=== PATIENT | female | born 1935 | race Caucasian/White ===

== ENCOUNTER 2017-07-11 16:28 | Emergency (ER) | payer MEDICARE, OTHER ==
[2017-07-11 16:35] VITALS: BP 154/95
--- NOTE | 2017-07-11 16:59 | RAD ---
INDICATION: Left wrist injury COMPARISON: October 07, 2004 TECHNIQUE: AP, lateral, and oblique views were obtained. FINDINGS: There is osteopenia with a remote distal radial fracture. There are no acute osseous findings. 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 IMPRESSION: OLD INTRA-ARTICULAR DISTAL RADIAL FRACTURE. NO ACUTE ABNORMALITIES ARE SEEN
--- NOTE | 2017-07-11 17:12 | UC ---
Upper Extremity HPI - HPI Summary HPI Summary: Patient presents to the ED with left wrist pain after a FOOSH injury. She notes to pain over the dorsum of the wrist, worse with flexion and extension, better with rest and ice. She has fx the area twice and is concerned over another injury. She denies other pain. Denies hitting her head, FERGUSON or LOC. Mechanism of injury was falling down 2 steps from a standing position. The fall was mechanical and she did not have memory loss, confusion or dizziness prior to the fall. Denies other symptoms. She is otherwise healthy. Denies numbness, tingling, color or temperature changes. - History of Current Complaint Chief Complaint: UCUpperExtremity Stated Complaint: WRIST INJURY Time Seen by Provider: 07/11/17 16:38 Hx Obtained From: Patient ?: No Onset/Duration: Sudden Onset Severity Initially: Moderate Severity Currently: Moderate Pain Intensity: 4 Pain Scale Used: 0-10 Numeric Location Of Pain: Is Discrete @ - left dorsum or the wrist Aggravating Factor(s): Lifting, Flexion, Internal/External Rotation Alleviating Factor(s): Nothing Associated Signs And Symptoms: Positive: Negative Related History: Dominant Hand Right - Risk Factors Non-Orthopedic Risk Factor: Negative DVT Risk Factors: Negative Compartment Syndrome Risk Factors: Pain - Allergies/Home Medications Allergies/Adverse Reactions: Allergies Allergy/AdvReac Type Severity Reaction Status Date / Time Sulfa Drugs Allergy RASH & Verified 07/11/17 16:35 SICK TO STOMACH ENVIRONMENTAL/SEASONAL Allergy Sneezing Uncoded 07/11/17 16:35 HAYFEVER PMH/Surg Hx/FS Hx/Imm Hx Previously Healthy: No - Surgical History Surgical History: Yes Surgery Procedure, Year, and Place: 1987 BILATERAL TUBAL LIGATION, [facility] – [place]. 2011 RIGHT WRIST FRACTURE - EXTERNAL FIXATION, [facility] [place]. 2011 GLAUCOMA SURGERY - RIGHT EYE, [place]. 09/2013 LEFT HIP PINNING, [place] - Family History Known Family History: Positive: Unknown - Social History Occupation: Retired Lives: With Family Alcohol Use: Occasionally Alcohol Amount: 2-3 OZ PER DAY OF WINE Substance Use Type: None Smoking Status (MU): Never Smoked Tobacco Have You Smoked in the Last Year: No Review of Systems Constitutional: Negative Respiratory: Negative Cardiovascular: Negative Motor: Negative, Decreased ROM Musculoskeletal: Arthralgia Neurological: Negative Psychological: Negative Is Patient Immunocompromised?: No All Other Systems Reviewed And Are Negative: Yes Physical Exam Triage Information Reviewed: Yes Appearance: Well-Appearing, No Pain Distress, Well-Nourished Vital Signs: Initial Vital Signs Temp 98.8 F 07/11/17 16:32 Pulse 78 07/11/17 16:32 Resp 12 07/11/17 16:32 BP 154/95 07/11/17 16:32 Pulse Ox 100 07/11/17 16:32 Vital Signs Reviewed: Yes Eye Exam: Normal Eyes: Positive: Conjunctiva Clear Neck exam: Normal Neck: Positive: Supple, No Lymphadenopathy Respiratory Exam: Normal Respiratory: Positive: Chest non-tender Cardiovascular Exam: Normal Cardiovascular: Positive: RRR Musculoskeletal Exam: Normal Musculoskeletal: Positive: Strength Intact Psychological: Positive: Normal Response To Family, Age Appropriate Behavior Skin Exam: Normal Upper Extremity Course/Dx - Course Course Of Treatment: Patient sent to xray. Negative for fx. Dank wrapped. Encouraged ice and elevation and ibuprofen. If symptoms worsen, she should return to the ED. - Differential Dx/Diagnosis Differential Diagnosis/HQI/PQRI: Contusion, Fracture (Open), Fracture (Closed) Provider Diagnoses: Wrist Sprain Discharge - Discharge Plan Condition: Stable Disposition: HOME Patient Education Materials: Wrist Sprain (ED) Referrals: Terrence Smallwood MD [Primary Care Provider] - Additional Instructions: Ibuprofen 400mg three times daily for pain Keep dank wrapped for comfort Ice the area
== END 2017-07-11 17:16 | disposition home or self-care (01) ==
LOC: UCEAST 16:28
DX: S63.502A Unspecified sprain of left wrist, initial encounter (principal); W10.9XXA Fall (on) (from) unspecified stairs and steps, initial encounter; Y92.9 Unspecified place or not applicable
CPT/HCPCS: 99211; G0463

== ENCOUNTER 2017-07-12 10:07 | Emergency (ER) | payer MEDICARE, OTHER ==
[2017-07-12 10:30] VITALS: BP 131/81
--- NOTE | 2017-07-12 10:56 | UC ---
Back Pain HPI - HPI Summary HPI Summary: 81 y/o female s/p mechanical fall yesterday, was seen here for wrist pain, negative x-ray. patient states had back pain however was not evaluated. Denies radiculopathy, neuropathy, + pain over R gluteal area, better with sleeping on right side overnight, worse sleeping on left. improved with alleve this AM. had h/o osteopenia and L broken hip in past, concerned about fracture. no LOC, head injury no other pains. - History of Current Complaint Chief Complaint: UCBackPain Stated Complaint: BACK INJURY Time Seen by Provider: 07/12/17 10:33 Hx Obtained From: Patient ?: No Onset/Duration: Sudden Onset, Lasting Days Timing: Constant Severity Initially: Moderate Severity Currently: Mild - Allergies/Home Medications Allergies/Adverse Reactions: Allergies Allergy/AdvReac Type Severity Reaction Status Date / Time Sulfa Drugs Allergy RASH & Verified 07/12/17 10:30 SICK TO STOMACH ENVIRONMENTAL/SEASONAL Allergy Sneezing Uncoded 07/12/17 10:30 HAYFEVER PMH/Surg Hx/FS Hx/Imm Hx Previously Healthy: No - h/o osteopenia - Surgical History Surgical History: Yes Surgery Procedure, Year, and Place: 1987 BILATERAL [place], [facility] [place]. 2011 RIGHT WRIST FRACTURE - EXTERNAL FIXATION, [facility] [place]. 2011 GLAUCOMA SURGERY - RIGHT EYE, [place]. 09/2013 LEFT HIP PINNING, [place] - Family History Known Family History: Positive: Unknown - Social History Alcohol Use: Occasionally Alcohol Amount: 2-3 OZ PER DAY OF WINE Substance Use Type: None Smoking Status (MU): Never Smoked Tobacco Have You Smoked in the Last Year: No Review of Systems Motor: Negative Neurovascular: Negative Musculoskeletal: Arthralgia, Myalgia - R gluteal area All Other Systems Reviewed And Are Negative: Yes Physical Exam Triage Information Reviewed: Yes Appearance: Well-Appearing, No Pain Distress, Well-Nourished Vital Signs: Initial Vital Signs Temp 98.2 F 07/12/17 10:26 Pulse 85 07/12/17 10:26 Resp 18 07/12/17 10:26 BP 131/81 07/12/17 10:26 Pulse Ox 100 07/12/17 10:26 Musculoskeletal: Positive: Strength Intact, ROM Intact, Edema @ - L hand, Other : - mild antalgic gait favoring R side, no drop foot. PT 2+ b/l, neg homans sign, sensation to light touch grossly intact b/l Les, neg log roll of R hip, full ROm, flexion to 90 AROM, no tenderness R groin, over trochanter. + tenderness over PSIS palpation extending into buttock, no loss of bowel/ bladder function. L voalr hand + ecchymosis, swelling, dresssing removed and replaced to cover MCPs full strength all L digits Psychological: Positive: Normal Response To Family Back Pain Course/Dx - Course Course Of Treatment: radiograph- reviewed L wrist radiograph from yesterday, Neg. Follow up with orthopedist within 2-3 days if no improvement of L hand, R hip - Differential Dx/Diagnosis Differential Diagnosis/HQI/PQRI: Fracture, Herniated Disc, Osteomyelitis, Strain , Sprain Provider Diagnoses: contusion R hip Discharge - Discharge Plan Condition: Good Disposition: HOME Prescriptions: Lidocaine PATCH 5%* [Lidoderm 5% Patch*] 1 patch TRANSDERM DAILY #10 patch Patient Education Materials: Contusion in Adults (ED) Referrals: Terrence Smallwood MD [Primary Care Provider] - Additional Instructions: Back Pain HPI - HPI Summary HPI Summary: 81 y/o female s/p mechanical fall yesterday, was seen here for wrist pain, negative x-ray. patient states had back pain however was not evaluated. Denies radiculopathy, neuropathy, + pain over R gluteal area, better with sleeping on right side overnight, worse sleeping on left. improved with alleve this AM. had h/o osteopenia and L broken hip in past, concerned about fracture. no LOC, head injury no other pains. - History of Current Complaint Chief Complaint: UCBackPain Stated Complaint: BACK INJURY Time Seen by Provider: 07/12/17 10:33 Hx Obtained From: Patient ?: No Onset/Duration: Sudden Onset, Lasting Days Timing: Constant Severity Initially: Moderate Severity Currently: Mild - Allergies/Home Medications Allergies/Adverse Reactions: Allergies Allergy/AdvReac Type Severity Reaction Status Date / Time Sulfa Drugs Allergy RASH & Verified 07/12/17 10:30 SICK TO STOMACH ENVIRONMENTAL/SEASONAL Allergy Sneezing Uncoded 07/12/17 10:30 HAYFEVER PMH/Surg Hx/FS Hx/Imm Hx Previously Healthy: No - h/o osteopenia - Surgical History Surgical History: Yes Surgery Procedure, Year, and Place: 1987 BILATERAL [place], [facility] [place]. 2011 RIGHT WRIST FRACTURE - EXTERNAL FIXATION, [facility] [place]. 2011 GLAUCOMA SURGERY - RIGHT EYE, [place]. 09/2013 LEFT HIP PINNING, [place] - Family History Known Family History: Positive: Unknown - Social History Alcohol Use: Occasionally Alcohol Amount: 2-3 OZ PER DAY OF WINE Substance Use Type: None Smoking Status (MU): Never Smoked Tobacco Have You Smoked in the Last Year: No Review of Systems Motor: Negative Neurovascular: Negative Musculoskeletal: Arthralgia, Myalgia - R gluteal area All Other Systems Reviewed And Are Negative: Yes Physical Exam Triage Information Reviewed: Yes Appearance: Well-Appearing, No Pain Distress, Well-Nourished Vital Signs: Initial Vital Signs Temp 98.2 F 07/12/17 10:26 Pulse 85 07/12/17 10:26 Resp 18 07/12/17 10:26 BP 131/81 07/12/17 10:26 Pulse Ox 100 07/12/17 10:26 Musculoskeletal: Positive: Strength Intact, ROM Intact, Edema @ - L hand, Other : - mild antalgic gait favoring R side, no drop foot. PT 2+ b/l, neg homans sign, sensation to light touch grossly intact b/l Les, neg log roll of R hip, full ROm, flexion to 90 AROM, no tenderness R groin, over trochanter. + tenderness over PSIS palpation extending into buttock, no loss of bowel/ bladder function. L voalr hand + ecchymosis, swelling, dresssing removed and replaced to cover MCPs full strength all L digits Psychological: Positive: Normal Response To Family Back Pain Course/Dx - Course Course Of Treatment: radiograph- reviewed L wrist radiograph from yesterday, Neg. Follow up with orthopedist within 2-3 days if no improvement of L hand, R hip - Differential Dx/Diagnosis Differential Diagnosis/HQI/PQRI: Fracture, Herniated Disc, Osteomyelitis, Strain , Sprain Provider Diagnoses: contusion R hip Discharge - Discharge Plan Condition: Good Disposition: HOME Patient Education Materials: Contusion in Adults (ED) Back Pain HPI - HPI Summary HPI Summary: 81 y/o female s/p mechanical fall yesterday, was seen here for wrist pain, negative x-ray. patient states had back pain however was not evaluated. Denies radiculopathy, neuropathy, + pain over R gluteal area, better with sleeping on right side overnight, worse sleeping on left. improved with alleve this AM. had h/o osteopenia and L broken hip in past, concerned about fracture. no LOC, head injury no other pains. - History of Current Complaint Chief Complaint: UCBackPain Stated Complaint: BACK INJURY Time Seen by Provider: 07/12/17 10:33 Hx Obtained From: Patient ?: No Onset/Duration: Sudden Onset, Lasting Days Timing: Constant Severity Initially: Moderate Severity Currently: Mild - Allergies/Home Medications Allergies/Adverse Reactions: Allergies Allergy/AdvReac Type Severity Reaction Status Date / Time Sulfa Drugs Allergy RASH & Verified 07/12/17 10:30 SICK TO STOMACH ENVIRONMENTAL/SEASONAL Allergy Sneezing Uncoded 07/12/17 10:30 HAYFEVER PMH/Surg Hx/FS Hx/Imm Hx Previously Healthy: No - h/o osteopenia - Surgical History Surgical History: Yes Surgery Procedure, Year, and Place: 1987 BILATERAL TUBAL LIGATION, [facility] [place]. 2011 RIGHT WRIST FRACTURE - EXTERNAL FIXATION, [facility] [place]. 2011 GLAUCOMA SURGERY - RIGHT EYE, [place]. 09/2013 LEFT HIP PINNING, [place] - Family History Known Family History: Positive: Unknown - Social History Alcohol Use: Occasionally Alcohol Amount: 2-3 OZ PER DAY OF WINE Substance Use Type: None Smoking Status (MU): Never Smoked Tobacco Have You Smoked in the Last Year: No Review of Systems Motor: Negative Neurovascular: Negative Musculoskeletal: Arthralgia, Myalgia - R gluteal area All Other Systems Reviewed And Are Negative: Yes Physical Exam Triage Information Reviewed: Yes Appearance: Well-Appearing, No Pain Distress, Well-Nourished Vital Signs: Initial Vital Signs Temp 98.2 F 07/12/17 10:26 Pulse 85 07/12/17 10:26 Resp 18 07/12/17 10:26 BP 131/81 07/12/17 10:26 Pulse Ox 100 07/12/17 10:26 Musculoskeletal: Positive: Strength Intact, ROM Intact, Edema @ - L hand, Other : - mild antalgic gait favoring R side, no drop foot. PT 2+ b/l, neg homans sign, sensation to light touch grossly intact b/l Les, neg log roll of R hip, full ROm, flexion to 90 AROM, no tenderness R groin, over trochanter. + tenderness over PSIS palpation extending into buttock, no loss of bowel/ bladder function. L voalr hand + ecchymosis, swelling, dresssing removed and replaced to cover MCPs full strength all L digits Psychological: Positive: Normal Response To Family Back Pain Course/Dx - Course Course Of Treatment: radiograph- reviewed L wrist radiograph from yesterday, Neg. Follow up with orthopedist within 2-3 days if no improvement of L hand, R hip - Differential Dx/Diagnosis Differential Diagnosis/HQI/PQRI: Fracture, Herniated Disc, Osteomyelitis, Strain , Sprain Provider Diagnoses: contusion R hip Discharge - Discharge Plan Condition: Good Disposition: HOME Patient Education Materials: Contusion in Adults (ED) Back Pain HPI - HPI Summary HPI Summary: 81 y/o female s/p mechanical fall yesterday, was seen here for wrist pain, negative x-ray. patient states had back pain however was not evaluated. Denies radiculopathy, neuropathy, + pain over R gluteal area, better with sleeping on right side overnight, worse sleeping on left. improved with alleve this AM. had h/o osteopenia and L broken hip in past, concerned about fracture. no LOC, head injury no other pains. - History of Current Complaint Chief Complaint: UCBackPain Stated Complaint: BACK INJURY Time Seen by Provider: 07/12/17 10:33 Hx Obtained From: Patient ?: No Onset/Duration: Sudden Onset, Lasting Days Timing: Constant Severity Initially: Moderate Severity Currently: Mild - Allergies/Home Medications Allergies/Adverse Reactions: Allergies Allergy/AdvReac Type Severity Reaction Status Date / Time Sulfa Drugs Allergy RASH & Verified 07/12/17 10:30 SICK TO STOMACH ENVIRONMENTAL/SEASONAL Allergy Sneezing Uncoded 07/12/17 10:30 HAYFEVER PMH/Surg Hx/FS Hx/Imm Hx Previously Healthy: No - h/o osteopenia - Surgical History Surgical History: Yes Surgery Procedure, Year, and Place: 1987 BILATERAL TUBAL LIGATION, [facility] [place]. 2011 RIGHT WRIST FRACTURE - EXTERNAL FIXATION, [facility] [place]. 2011 GLAUCOMA SURGERY - RIGHT EYE, [place]. 09/2013 LEFT HIP PINNING, [place] - Family History Known Family History: Positive: Unknown - Social History Alcohol Use: Occasionally Alcohol Amount: 2-3 OZ PER DAY OF WINE Substance Use Type: None Smoking Status (MU): Never Smoked Tobacco Have You Smoked in the Last Year: No Review of Systems Motor: Negative Neurovascular: Negative Musculoskeletal: Arthralgia, Myalgia - R gluteal area All Other Systems Reviewed And Are Negative: Yes Physical Exam Triage Information Reviewed: Yes Appearance: Well-Appearing, No Pain Distress, Well-Nourished Vital Signs: Initial Vital Signs Temp 98.2 F 07/12/17 10:26 Pulse 85 07/12/17 10:26 Resp 18 07/12/17 10:26 BP 131/81 07/12/17 10:26 Pulse Ox 100 07/12/17 10:26 Musculoskeletal: Positive: Strength Intact, ROM Intact, Edema @ - L hand, Other : - mild antalgic gait favoring R side, no drop foot. PT 2+ b/l, neg homans sign, sensation to light touch grossly intact b/l Les, neg log roll of R hip, full ROm, flexion to 90 AROM, no tenderness R groin, over trochanter. + tenderness over PSIS palpation extending into buttock, no loss of bowel/ bladder function. L voalr hand + ecchymosis, swelling, dresssing removed and replaced to cover MCPs full strength all L digits Psychological: Positive: Normal Response To Family Back Pain Course/Dx - Course Course Of Treatment: radiograph- reviewed L wrist radiograph from yesterday, Neg. Follow up with orthopedist within 2-3 days if no improvement of L hand, R hip - Differential Dx/Diagnosis Differential Diagnosis/HQI/PQRI: Fracture, Herniated Disc, Osteomyelitis, Strain , Sprain Provider Diagnoses: contusion R hip Discharge - Discharge Plan Condition: Good Disposition: HOME Patient Education Materials: Contusion in Adults (ED) - Rest, ice or heat over area - Follow up with primary physician within 2-3 days if no improvement - Alleve/ motrin as needed for pain -
--- NOTE | 2017-07-12 11:38 | RAD ---
Indication: RIGHT iliac crest pain post fall one day ago. Previous LEFT hip pinning. Osteopenia. Comparison: July 01, 2016 Technique: AP pelvis and AP and frog-leg lateral views RIGHT hip. Report: The RIGHT hip is normally located and demonstrates preserved joint space. No proximal RIGHT femur or pelvis fracture or pelvic joint diastases. Cannulated lag screws at the LEFT femoral neck with unchanged severe magnitude of impaction at the femoral head neck junction. Unremarkable soft tissue contours. Large volume of stool noted in the colon. IMPRESSION: No radiographic evidence for hip or pelvic fracture. As x-rays may be negative with nondisplaced hip fracture particularly in setting of decreased bone density if there is persistent clinical concern MRI or in setting of contraindication to MRI or limitation in emergent access to MRI CT would be suggested.
== END 2017-07-12 11:52 | disposition home or self-care (01) ==
LOC: UCEAST 10:07
DX: S70.01XA Contusion of right hip, initial encounter (principal); W19.XXXA Unspecified fall, initial encounter; Y92.9 Unspecified place or not applicable
CPT/HCPCS: 99212; G0463

== ENCOUNTER 2018-08-04 11:21 | Inpatient (IN) | payer MEDICARE, OTHER ==
--- NOTE | 2018-07-25 20:55 | HP ---
HISTORY AND PHYSICAL: DATE OF ADMISSION/SURGERY: 08/04/18 DATE OF OFFICE VISIT: 07/24/18 SURGEON: Clover Lewis MD * (DICTATED BY LETICIA NUNEZ) PROCEDURE: Revision left hip pinning with conversion to left total hip arthroplasty. CHIEF COMPLAINT: Left hip pain. HISTORY OF PRESENT ILLNESS: Ms. Parada is an 82-year-old female, who underwent a left hip pinning after a fracture. She continues to have pain in her left hip and has elected to have surgery to remove the pins and convert it to a left total hip arthroplasty. PAST MEDICAL HISTORY: Osteoporosis, hyperlipidemia, hypertension, hypothyroidism, glaucoma, aortic stenosis, and coronary artery disease. PAST SURGICAL HISTORY: Left hip pinning, glaucoma surgery, ex-fix of the right wrist, tonsillectomy, and cataract removal. CURRENT MEDICATIONS: 1. Prolia. 2. Pravastatin sodium 10 mg daily. 3. Levothyroxine 25 mcg daily. 4. Amlodipine 2.5 mg daily. 5. Losartan potassium 50 mg daily. 6. Combigan eye drops. ALLERGIES: To SULFA. FAMILY HISTORY: Coronary artery disease, prostate cancer, and stroke. SOCIAL HISTORY: She is an 82-year-old female. Lives alone. She does not smoke , use drugs or alcohol. REVIEW OF SYSTEMS: A complete 14-point review of systems was reviewed with the patient, was positive for hypothyroidism. She denies history of DVT, PE, hepatitis, HIV, or anesthesia problems. PHYSICAL EXAMINATION GENERAL: She is well developed, well nourished, in no acute distress. VITAL SIGNS: She stands 62 inches tall, weighs 116 pounds. Her blood pressure is 122/86 and her heart rate is 68. HEENT: Normocephalic, atraumatic. NECK: Supple. No palpable lymph nodes. PULMONARY: Lungs are clear to auscultation bilaterally. CARDIO: Regular rate rhythm. Strong S1 and S2. ABDOMEN: Soft, nontender, nondistended. NEUROLOGIC: She is alert and oriented x3. MUSCULOSKELETAL: Left lower extremity, the skin is intact. There are no open wounds or abrasions. She has 100 degrees of hip flexion with 5 degrees of internal rotation and 30 degrees of external rotation. She walks with an antalgic-type gait favoring her left hip. The left leg is at least 1 inch shorter than the right. She has a 2+ dorsalis pedis pulse. Her lower extremity muscle group strengths are intact at 5/5 and she has an intact sensation. ASSESSMENT AND PLAN: Ms. Parada is an 82-year-old female with chronic left hip pain after cannulated screw fixation. 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 She has elected to proceed with revision of the cannulated screws to a total hip arthroplasty. The surgery is scheduled for 08/04/[address] Lewis discussed the risks and benefits of the surgery at today's visit and all of her questions were answered. She will follow up with Dr. Lewis 2 weeks after the surgery. LETICIA NUNEZ [id number]/CPS #: [id number] MTDD
[~2018-08-04 11:21] MED LIST: Acetaminophen IV 1GM/100ML * 10 MG/ML VIAL IVPB ONE; Buffered Lidocaine 0.9% SYRIN* 5 ML/SYR SYRINGE INTRADERM ONE; Dexamethasone IV* 4 MG/ML 1 ML (4 MG) IV SLOW PU ONE; Famotidine IV* 10 MG/ML 2 ML (20 mg) IV ONE; Gabapentin CAP(*) 300 MG PO ONE; celeCOXIB CAP* 100 MG PO ONE
--- OUTSIDE RECORDS SUMMARY | 2018-08-04 11:25 | XMS REPORT ---
:1935 External Reference #:[id number] Author Organization [facility] Address [address] [place] [address] [place] [address] Phone [phone] Care Team Providers Name Role Phone Terrence Smallwood MD Primary Care Physician Unavailable Payers Type Date Identification Numbers Payment Provider Subscriber Medicare Primary Effective: Policy Number: Medicare Deneen Parada 2002 [id number] PayID: [id number] [address] [place] [address] Medigap Part B Policy Number: [id number] A[employer] Insurance Deneen Parada PayID: [id number] [address] [place] [address] Medigap Part B Expires: 2018 Policy Number: [employer] Insurance Deneen Parada [id number] Group Number: [id number] [address] PayID: [id number] [place] [address] Problems Date Description Provider Status Onset: 07/07/2018 Localized, secondary osteoarthritis of Clover Lewis M.D. Active the pelvic region and thigh Onset: 07/01/2016 Low back pain Raymond Sharpe M.D. 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 ETOH Use Occasionally consumes wine Smoking Patient has never smoked Recreational Drug Use Denies Drug Use Daily Caffeine Consumes on average 2 cups of regular coffee per day Exercise Type/Frequency Exercises regularly Allergies, Adverse Reactions, Alerts Date Description Reaction Status Severity Comments 11/28/2013 Sulfa Antibiotics active Medications Medication Date Status Form Strength Qnty SIG Indications Ordering Provider Combigan Active 1 drop Unknown 000 left eye twice per day Synthroid Active Tablets 25mcg 1 by Unknown 000 mouth every day Pravastatin Active Tablets 10mg 1 tablet Unknown Sodium 000 by mouth once daily at bedtime Losartan Active Tablets 50mg 1 by Unknown Potassium 000 mouth every day Amlodipine Active Tablets 2.5mg 1 by Unknown Besylate 000 mouth every day Prolia Active Solution 60mg/ml 60 mg sc Unknown 000 q6mon Multivitamin Active Tablets 1 by Unknown Adult 000 mouth every day Vitamin D3 Active Capsules 1000Unit 1 by Unknown 000 mouth every day Tums Active Chewtabs 500mg 1 tabtets Unknown 000 once per day Aleve Active Tablets 220mg 2 tabs by Unknown 000 mouth twice a day for back pain [place] Hx Tablets 5-325mg 40tabs 1-2 po Raymond 014 - bid prn Dell, pain M.D. 018 Cozaar Hx 50mg daily Unknown - 018 Norvasc Hx 2.5mg daily Unknown - 018 Azopt Hx Unknown - 018 Fosamax Hx Unknown - 016 Advil Hx Tablets 200mg as needed Unknown - 018 Vital Signs Date Vital Result Comment 07/24/2018 Height 62 inches 5'2" Weight 116.00 lb Heart Rate 68 /min BP Systolic 122 mmHg BP Diastolic 86 mmHg Respiratory Rate 12 /min Body Temperature 97.7 F Pain Level 1 BMI (Body Mass Index) 21.2 kg/m2 07/21/2018 Height 62 inches 5'2" Weight 115.00 lb Heart Rate 76 /min BP Systolic 132 mmHg Rue reg cuff BP Diastolic 80 mmHg Rue reg cuff BP Systolic Sitting 134 mmHg Lue reg cuff BP Diastolic Sitting 86 mmHg Lue reg cuff BP Systolic Standing 136 mmHg Lue BP Diastolic Standing 86 mmHg Lue Respiratory Rate 16 /min BMI (Body Mass Index) 21.0 kg/m2 Ejection Fraction 55-60% 06/26/18 07/07/2018 Height 62 inches 5'2" Weight 114.00 lb BP Systolic 134 mmHg BP Diastolic 80 mmHg Respiratory Rate 15 /min Pain Level 5 BMI (Body Mass Index) 20.8 kg/m2 05/04/2018 Height 65 inches 5'5" Weight 119.00 lb Heart Rate 64 /min BP Systolic Sitting 122 mmHg BP Diastolic Sitting 80 mmHg Respiratory Rate 16 /min Pain Level 5 BMI (Body Mass Index) 19.8 kg/m2 07/01/2016 Height 65 inches 5'5" Weight 128.00 lb Heart Rate 80 /min BP Systolic 144 mmHg BP Diastolic 78 mmHg BMI (Body Mass Index) 21.3 kg/m2 02/01/2014 Heart Rate 72 /min BP Systolic 158 mmHg BP Diastolic 107 mmHg 01/04/2014 Weight 118.00 lb Heart Rate 69 /min BP Systolic 134 mmHg BP Diastolic 89 mmHg Results Description No Information Procedures Date CPT Code Description Status 07/21/2018 59648 EKG Tracing & Interpretation Completed 06/26/2018 02434 ECHO Transthoracic, Real-Time 2D With Doppler And Color Completed Flow 06/26/2018 42674 ECHO Transthoracic, Real-Time 2D With Doppler And Color Completed Flow 02/01/2014 03731 Rad Exam; Hip Unilat Completed 02/01/2014 76805 Rad Exam; Pelvis Completed 01/04/2014 38693 Rad Exam; Hip Unilat Completed 01/04/2014 91984 Rad Exam; Pelvis Completed 11/28/2013 49816 Rad Exam; Hip Unilat Completed 11/28/2013 98318 Rad Exam; Pelvis Completed 11/14/2012 49846 ECHO Transthoracic, Real-Time 2D With Doppler And Color Completed Flow 01/06/2012 55125 Rad Exam; Wrist Limited, 2 Views Completed 12/28/2011 01454 Rad Exam; Wrist, Comp, Min 3 Views Completed 12/28/2011 70175 Rad Exam; Wrist Limited, 2 Views Completed 12/28/2011 21833 Rad Exam; Forearm Completed 12/17/2011 65896 Percutaneous Skeletal Fixation Of Distal Radial FX Completed Epiphyseal SEP 12/17/2011 73212 Percutaneous Skeletal Fixation Of Distal Radial FX Completed Epiphyseal SEP 12/14/2011 75905 EKG, Interpretation Only Completed 12/14/2011 03502 Rad Exam; Wrist Limited, 2 Views Completed 12/14/2011 03457 Rad Exam; Wrist Limited, 2 Views Completed 12/14/2011 00188 Short Arm Cast Application Completed Encounters Type Date Location Provider CPT E/M Dx Office Visit 07/07/2018 [facility] Clover Lewis M.D. 00214 M25.552 8:30a Of [facility] M16.52 Office Visit 05/04/2018 2:00p [facility] Sanjuanita Lal 36485 M25.532 [facility] Office Visit 07/01/2016 8:00a [facility] Raymond Sharpe 40270 M54.5 [facility] Office Visit 02/01/2014 11:30a [facility] Raymond Sharpe 06793 820.80 [facility] M[facility] Office Visit 01/04/2014 11:45a [facility] aRymond Sharpe 22087 820.80 [facility] Office Visit 11/28/2013 3:00p [facility] Raymond Sharpe 71768 820.80 [facility] Office Visit 12/14/2011 10:45a [facility] Raymond Sharpe 42514 813.42 Of [facility]in 813.42 813.43 Plan of Care Future Appointment(s):08/18/2018 9:15 am - Clover Lewis M.D. at [facility]08/04/2018 1:00 pm - LETICIA Ferguson at [facility]08/04/2018 1:00 pm - Clover Lewis M.D. at [facility]07/24/2018 - Clover Lewis M.D.M25.552 Pain in left hipFollow up:Follow up: 2 weeks after jrjklkzO22.52 Unilateral post-traumatic osteoarthritis, left hip
--- OUTSIDE RECORDS SUMMARY | 2018-08-04 11:27 | XMS REPORT | Continuity of Care Document ---
:1935 External Reference #:[id number] Author Name Jarad Coyne III, MD Address [address] [place] [address] Care Team Providers Name Role Phone Yoshi Butts MD. 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 Terrence Smallwood MD Primary Care Physician Unavailable Payers Type Date Identification Numbers Payment Provider Subscriber Policy Number: [id number] Medicare Part B Deneen Parada PayID: [id number] [address] [place] [address] Policy Number: [id number] Aet[employer] Deneen Chakrabortybins Group Number: [id number] [address] PayID: [id number] [place] [address] Advance Directives Description No Information Available Problems Date Description Provider Status Onset: 02/27/2018 Hypercholesterolemia Jarad Coyne III, MD Active Family History Description No Information Available Social History Type Date Description Comments Sex Unknown ETOH Use Denies alcohol use Tobacco Use Start: Unknown Patient has never smoked Smoking Status Reviewed: 06/22/18 Patient has never smoked Allergies, Adverse Reactions, Alerts Date Description Reaction Status Severity Comments 02/27/2018 Sulfa Antibiotics Active Medications Medication Date Status Form Strength Qnty SIG Indications Ordering Provider Combigan 02/27/ Active Solution 0.2-0.5% 15ml 1 drop H40.1122 Jarad Burgess 2018 left eye Devincentis twice a III day as directed Presses 02/27/ Active 1 press H40.1122 Jarad Burgess 2018 for 10 Devincentis seconds on III left eye four times daily Losartan 00/00/ Active Tablets 50mg Unknown Potassium 0000 Amlodipine 00/00/ Active Tablets 2.5mg Unknown Besylate 0000 Pravastatin // Active Tablets 10mg Unknown Sodium 0000 Prolia / Active Solution 60mg/ml Unknown 0000 Pred Forte 06/11/ Hx Suspension 1% 15ml 1 drop Jarad Burgess 2017 - left eye 2 Devincentis 05/25/ times III 2018 daily Durezol 02/27/ Hx Emulsion 0.05% 15ml 1 drop Z98.83 Jarad Burgess 2017 - left eye Devincentis 04/10/ three III 2018 times a day as directed Ilevro 02/27/ Hx Suspension 0.3% 3ml 1 drop Z98.83 Jarad Burgess 2017 - left eye Devincentis 03/13/ every 24 III 2018 hours as directed Shield 02/27/ Hx Wear Z98.83 Jarad Burgess 2017 - sheild at Devincentis 05/25/ bedtime III 2017 and anytime napping Immunizations Description No Information Available Vital Signs Date Vital Result Comment 07/14/2018 9:39am Intraocular Pressure Right Eye 11 mmHg Ap Intraocular Pressure Left Eye 16 mmHg Ap Recheck IOP Left Eye 12 p Ap 10:25 Am Recheck IOP Left Eye 2 9.5 p Ap 10:26 Am 06/22/2018 10:31am Intraocular Pressure Right Eye 10 mmHg Tp Intraocular Pressure Left Eye 15 mmHg Tp Recheck IOP Right Eye 8 Ap Recheck IOP Left Eye 18 11:59 Am 05/25/2018 4:02pm Intraocular Pressure Right Eye 12 mmHg ap Intraocular Pressure Left Eye 16 mmHg ap Recheck IOP Left Eye 17 afd Recheck IOP Left Eye 2 14.5 dm 04/10/2018 10:56am Intraocular Pressure Right Eye 12 mmHg Ap Intraocular Pressure Left Eye 16 mmHg Ap 10:56 Am 03/13/2018 9:19am Intraocular Pressure Right Eye 12 mmHg Ap 09:22 Am Intraocular Pressure Left Eye 16 mmHg Recheck IOP Left Eye 12.5 pDM d 09:59 Am 02/27/2018 3:58pm Intraocular Pressure Right Eye 10 mmHg Ap Intraocular Pressure Left Eye 16 mmHg Ap Recheck IOP Left Eye 14 post press Results Description No Information Available Procedures Date Code Description Status 01/24/2018 25716 Aqueous Shunt Extraocular Reservr Completed 01/10/2018 14446 Ophthalmoscopy; W/Fundus Photo Completed 01/10/2018 39044 Vis Field W/Med Diag;Ext,Roby Per Completed 01/10/2018 24905 Exam, Comprehensive, Est PT Completed 12/15/2017 68160 Scan Computer Diag Imag W/Report Optic Nerve Completed 12/15/2017 27004 Vis Field W/Med Diag;Ext,Roby Per Completed 12/15/2017 73837 Gonioscopy W/Med Diag Eval Completed 12/15/2017 13447 Exam Comprehensive, New PT Completed 12/15/2017 15143 Cornea Pachymetry, Unilat/Bilat Completed Encounters Type Date Location Provider Dx Diagnosis Office Visit 07/14/2018 Main Office Jarad Burgess H40.1122 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, left eye, moderate stage Office Visit 06/22/2018 Main Office Trinh Hayes, H40.1122 Primary open-angle 10:00a MD glaucoma, left eye, moderate stage Z98.83 Filtering (vitreous) bleb after glaucoma surgery status Office Visit 05/25/2018 3:15p Main Office Jarad Burgess H40.1122 Primary Devincentis III MD open-angle glaucoma, left eye, moderate stage Z98.83 Filtering (vitreous) bleb after glaucoma surgery status H40.1113 Primary open-angle glaucoma, right eye, severe stage Plan of Treatment 07/14/2018 - Jarad Coyne III H40.1122 Primary open-angle glaucoma, left eye, moderate stageFollow up:3 mo iop 10-2 od 30-2 os oct ou. Dilate Myd 1/ 2%
--- OUTSIDE RECORDS SUMMARY | 2018-08-04 11:27 | XMS REPORT ---
:1935 External Reference #:[id number] Author Organization [employer] Address [address] [place] [address] [place] [address] Phone [phone] Care Team Providers Name Role Phone Terrence Smallwood MD Primary Care Physician Unavailable Payers Type Date Identification Numbers Payment Provider Subscriber Medicare Primary Effective: Policy Number: Medicare Deneen Parada 2002 [id number] PayID: [id number] [address] [place] [address] Medigap Part B Policy Number: [id number] A[employer] Insurance Deneen Parada PayID: [id number] [address] [place] [address] Medigap Part B Expires: 2018 Policy Number: A[employer]na Insurance Deneen Parada [id number] Group Number: [id number] [address] PayID: [id number] [place] [address] Problems Date Description Provider Status Onset: 07/07/2018 Localized, secondary osteoarthritis of Clover Lewis M.D. Active the pelvic region and thigh Onset: 07/01/2016 Low back pain Raymond Sharpe M.D. Active Family History Date Family Member(s) Problem(s) Comments General Heart Disease General Cancer General Diabetes Social History Type Date Description Comments Lives With Occupation Retired ETOH Use Occasionally consumes wine Smoking Patient has never smoked Exercise Type/Frequency Exercises regularly Allergies, Adverse Reactions, Alerts Date Description Reaction Status Severity Comments 11/28/2013 Sulfa Antibiotics active Medications Medication Date Status Form Strength Qnty SIG Indications Ordering Provider Silas Active 50mg daily Unknown 000 Norvasc Active 2.5mg daily Unknown 000 Combigan Active Unknown 000 Synthroid Active Tablets 25mcg 1 by mouth Unknown 000 every day Pravastatin Active Tablets 10mg 1 tablet Unknown Sodium 000 by mouth once daily at bedtime Losartan Active Tablets 50mg 1 by mouth Unknown Potassium 000 every day Amlodipine Active Tablets 2.5mg 1 by mouth Unknown Besylate 000 every day Peytona Hx Tablets 5-325mg 40tabs 1-2 po bid Raymond 014 - prn pain Dell, M.D. 018 Azopt Hx Unknown 000 - 018 Fosamax Hx Unknown 000 - 016 Advil Hx Tablets 200mg as needed Unknown 000 - 018 Vital Signs Date Vital Result Comment 07/07/2018 Height 62 inches 5'2" Weight 114.00 [...] Information Procedures Date CPT Code Description Status 06/26/2018 77242 ECHO Transthoracic, Real-Time 2D With Doppler And Color Completed Flow 06/26/2018 19792 ECHO Transthoracic, Real-Time 2D With Doppler And Color Completed Flow 02/01/2014 53050 Rad Exam; Hip Unilat Completed 02/01/2014 77585 Rad Exam; Pelvis Completed 01/04/2014 54517 Rad Exam; Hip Unilat Completed 01/04/2014 51986 Rad Exam; Pelvis Completed 11/28/2013 93381 Rad Exam; Hip Unilat Completed 11/28/2013 44905 Rad Exam; Pelvis Completed 11/14/2012 14649 ECHO Transthoracic, Real-Time 2D With Doppler And Color Completed Flow 01/06/2012 75277 Rad Exam; Wrist Limited, 2 Views Completed 12/28/2011 75929 Rad Exam; Wrist, Comp, Min 3 Views Completed 12/28/2011 59834 Rad Exam; Wrist Limited, 2 Views Completed 12/28/2011 67224 Rad Exam; Forearm Completed 12/17/2011 03173 Percutaneous Skeletal Fixation Of Distal Radial FX Completed Epiphyseal SEP 12/17/2011 82246 Percutaneous Skeletal Fixation Of Distal Radial FX Completed Epiphyseal SEP 12/14/2011 04338 EKG, Interpretation Only Completed 12/14/2011 84304 Rad Exam; Wrist Limited, 2 Views Completed 12/14/2011 01047 Rad Exam; Wrist Limited, 2 Views Completed 12/14/2011 38836 Short Arm Cast Application Completed Encounters Type Date Location Provider CPT E/M Dx Office Visit 05/04/2018 [facility] Sanjuanita Lal 54941 M25.532 2:00p Of [facility] Office Visit 07/01/2016 [facility] Raymond Sharpe M.D. 88692 M54.5 8:00a [facility] Office Visit 02/01/2014 [facility] Raymond Sharpe M.D. 87954 820.80 11:30a Of [facility] Office Visit 01/04/2014 [facility] Raymond Sharpe M.D. 06200 820.80 11:45a Of [facility] Office Visit 11/28/2013 [facility] Raymond Sharpe M.D. 36210 820.80 3:00p Of [facility] Office Visit 12/14/2011 [facility] Raymond Sharpe M.D. 55848 813.42 10:45a Of [facility] 813.42 813.43 Plan of Care Future Appointment(s):07/24/2018 11:15 am - Clover Lewis M.D. at [facility]07/07/2018 - Clover Lewis M.D.M25.552 Pain in left hipM16.52 Unilateral post-traumatic osteoarthritis, left hipFollow up:Follow up: 7-10 days before surgery
[2018-08-04] MEDS ORDERED: ceFAZolin 2 GM in NS PREMIX(*) 2 GM/100 ML BAG IVPB ONE (11:51)
[2018-08-04] MEDS ORDERED: celeCOXIB CAP* 100 MG ONE (11:51)
[2018-08-04] MEDS ORDERED: Gabapentin CAP(*) 300 MG ONE (11:51)
[2018-08-04] MEDS ORDERED: Dexamethasone IV* 4 MG/ML 1 ML (4 MG) ONE (11:51)
[2018-08-04] MEDS ORDERED: Buffered Lidocaine 0.9% SYRIN* 5 ML/SYR SYRINGE ONE (11:51)
[2018-08-04] MEDS ORDERED: Acetaminophen IV 1GM/100ML * 100 ML ONE (11:53)
[2018-08-04] MEDS ORDERED: Midazolam* 1 MG/ML 5 ML VIAL (5 MG) ONE (11:54)
[2018-08-04] MEDS ORDERED: fentaNYL* 50 MCG/ML 2 ML VIAL (100 MCG VIAL) ONE (11:54)
[2018-08-04] MEDS ORDERED: Propofol* 10 MG/ML 20 ML BTL IV PUSH ONE (11:55)
[2018-08-04] MEDS ORDERED: Ondansetron INJ* 2 MG/ML VIAL ONE (11:55)
[2018-08-04] MEDS ORDERED: Bupivacaine 0.25% W/EPI* 10 ML SDV ONE (11:56)
[2018-08-04] MEDS ORDERED: Famotidine IV* 10 MG/ML 2 ML (20 mg) ONE (11:59)
[2018-08-04] MEDS ORDERED: Naloxone* 0.4 MG/ML 1 ML VIAL IV PRN (15:00)
[2018-08-04] MEDS ORDERED: HYDROmorphone INJ1* 1 MG/ML SYRINGE IV PRN (15:00)
[2018-08-04] MEDS ORDERED: Scopolamine 1.5 mg* PATCH TRANSDERM PRN (15:00)
[2018-08-04] MEDS ORDERED: Ondansetron INJ* 2 MG/ML VIAL IV PRN ×2 (15:00→16:39)
[2018-08-04] MEDS ORDERED: fentaNYL* 50 MCG/ML 2 ML VIAL (100 MCG VIAL) IV PRN (15:00)
[2018-08-04] MEDS ORDERED: DiMENhydriNATE IV* 50 MG/ML VIAL IV PUSH PRN (15:00)
[2018-08-04] MEDS ORDERED: Glycopyrrolate IV* 0.2 MG/ML 1 ML VIAL ONE (15:55)
[2018-08-04] MEDS ORDERED: ROPIVACAINE 5 MG/ML 30 ML BTL (0.5%) ONE (16:16)
[2018-08-04] MEDS ORDERED: oxyCODONE/Acetamin 5/325 MG* TAB PO PRN ×2 (16:39)
[2018-08-04] MEDS ORDERED: Morphine VIAL* 4 MG/ML VIAL (1 ml vial) IV PRN (16:39)
[2018-08-04] MEDS ORDERED: diPHENhydraMINE IV* 50 MG/ML 1 ml VIAL (BENADRYL) IV PRN (16:39)
[2018-08-04] MEDS ORDERED: Polyethylene Glycol 3350* 17 GM PACKET PO PRN (16:39)
[2018-08-04] MEDS ORDERED: Cyclobenzaprine TAB* 10 MG PO PRN (16:39)
[2018-08-04] MEDS ORDERED: Magnesium Hydroxide LIQ* 30 ML UDC PO PRN (16:39)
[2018-08-04] MEDS ORDERED: Ondansetron TAB* 4 MG PO PRN (16:39)
[2018-08-04] MEDS ORDERED: Bisacodyl SUPP* 10 MG SUPP PR PRN (16:39)
[2018-08-04] MEDS ORDERED: oxyCODONE TAB* 5 MG TAB PO PRN (16:39)
[2018-08-04] MEDS ORDERED: Warfarin TAB(*) 6 MG PO ONE (17:00)
--- NOTE | 2018-08-04 18:03 | RAD ---
INDICATION: Status post total left hip replacement surgery. COMPARISON: Correlation is made with a prior study from July 07, 2018. TECHNIQUE: An AP view of the pelvis and frontal and lateral views of the left hip were obtained. FINDINGS: The patient is status post total left hip replacement surgery. The bones and prostheses are in normal alignment. There is air within the adjacent soft tissues consistent with the patient's recent surgery. IMPRESSION: STATUS POST TOTAL LEFT HIP REPLACEMENT SURGERY.
--- NOTE | 2018-08-04 18:09 | RAD ---
INDICATION: Revision left total hip arthroplasty. COMPARISON: Comparison is made with a prior study from July 07, 2018. TECHNIQUE: A single portable film of the left hip was obtained in the operating room. FINDINGS: The patient is undergoing a left total hip replacement surgery. The acetabular prostheses is in place and there is a femoral template prostheses in place. IMPRESSION: INTRAOPERATIVE CONTROL FILMS.
[2018-08-04] MEDS ORDERED: Acetaminophen TAB* 325 MG ONE (18:11)
[2018-08-04] MEDS: Acetaminophen TAB* 325 MG PO SCH ×2 (18:17→20:13)
[2018-08-04] MEDS: ceFAZolin 1 GM in Dextrose (*) 1 GM/50 ML BAG IVPB SCH (20:11)
[2018-08-04] MEDS: Docusate CAP* 100 MG PO SCH (20:12)
[2018-08-04] MEDS: CMC: Pravastatin (NF) 20 MG TAB PO SCH (20:12)
[2018-08-04] MEDS: Magnesium Hydroxide LIQ* 30 ML UDC PO SCH (20:31)
[2018-08-04] MEDS: PTO: Brimonid/Timolol 0.2/0.5%(NF) 10 ML OPHTH.SOLN LEFT EYE SCH (22:20)
[2018-08-04] MEDS: traMADol TAB* 50 MG PO PRN (22:20)
--- NOTE | 2018-08-04 23:44 | CONS ---
CC: Dr. Terrence Smallwood; Dr. Clover Lewis CONSULTATION REPORT: DATE OF ADMISSION: 08/04/18 DATE OF CONSULT: 08/04/18 PRIMARY CARE PROVIDER: Dr. Terrence Smallwood. PHYSICIAN REQUESTING CONSULTATION: Dr. Clover Lewis. ATTENDING PHYSICIAN: Dr. Nickie Martini (dictated by Rebecca Lewis NP). REASON FOR CONSULT: Co-medical management in a patient with a history of hypertension, hyperlipidemia, moderate aortic stenosis, hypothyroidism, and coronary artery disease. HISTORY OF PRESENT ILLNESS: Ms. Parada is an 82-year-old female with past medical history significant for hyperlipidemia, hyperlipidemia, hypothyroidism, moderate aortic stenosis, and coronary artery disease, who initially underwent left hip pinning after a hip fracture. She developed chronic left hip pain and elected to have removal of the hardware and conversion to a left total hip arthroplasty. She presented for her elective left total hip arthroplasty today with Dr. Clover Lewis. Prior to her presentation, she states she has been in her usual state of health with the exception of left hip pain. She denies any fevers, chills, chest pain, shortness of breath, nausea, vomiting, diarrhea, urinary symptoms. Postoperatively, she is recovering well and has had uneventful surgery and recovery in the PACU. She reports that her pain is controlled at this time. The hospitalists were asked to assist with co-medical management of this patient during her hospitalization. PAST MEDICAL HISTORY: 1. Osteoporosis. 2. Hyperlipidemia. 3. Hypertension. 4. Hypothyroidism. 5. Glaucoma. 6. Moderate aortic stenosis. 7. Coronary artery disease. 8. Malignant melanoma. 9. Osteopenia. PAST SURGICAL HISTORY: 1. Status post left hip ORIF. 2. Status post eye surgery for glaucoma. 3. Status post external fixation of the right wrist. 4. Status post tonsillectomy. 5. Status post cataract removal. 6. Excision of melanoma from right chest and forearm. MEDICATIONS: Home medications include: 1. Prolia 60 mg/mL, 60 mg subcutaneous every 6 months. 2. Pravastatin 10 mg oral daily. 3. Levothyroxine 25 mcg oral daily. 4. Amlodipine 2.5 mg oral daily. 5. Losartan 50 mg oral daily. 6. Combigan eye drops 1 drop to the left eye twice daily. 7. Multivitamin 1 tablet oral daily. 8. Vitamin D3 1000 units oral daily. 9. Tums 500 mg oral daily. 10. Aleve 220 mg 2 tablets oral twice daily. ALLERGIES: SULFA. FAMILY HISTORY: The patient's father passed from an IA at age 65. Grandmother with a stroke at age 85. Father with history of coronary artery disease, status post CABG; prostate cancer. Mother with a history of CVA at age 72. SOCIAL HISTORY: She denies tobacco, alcohol, or recreational drug use. Her daughter, Lauryn Parada, will be her surrogate decision maker in the event she is unable to make decisions for herself. REVIEW OF SYSTEMS: I performed an 11-point review of systems. All the pertinent positives and negatives are mentioned in the history of present illness. The remaining review of systems is negative. PHYSICAL EXAM: Vital Signs: Temperature 98.6, heart rate 70, respiratory rate 12, O2 sat 100% on 4 L via nasal cannula, blood pressure 111/88. General Appearance: She is alert, pleasant, and appears to be in no acute distress. HEENT: Normocephalic, atraumatic. Pupils are equal and reactive to light. Extraocular movements are intact. Respiratory: There is no accessory muscle use and lungs are clear to auscultation. Cardiovascular: Regular rate and rhythm. S1, S2 present. She has a grade 3/6 systolic murmur heard best at the upper sternal borders. There are no rubs, or gallops heard. Abdomen: Soft, nontender, nondistended. There are bowel sounds present x4. Extremities: No lower extremity edema. DP and PT pulses are 2+ and symmetric. Musculoskeletal : There is no clubbing or cyanosis noted. The patient exhibits good strength in all extremities. Neurological: She is alert and oriented x4. Cranial nerves II through XII are grossly intact. Psychological: She is calm and cooperative. Skin: There are no rashes or abnormalities seen. She has a dressing to her left hip that is clean, dry, and intact. LABORATORY DATA: Preoperative labs from 07/24/18 reveal a negative urinalysis and urine culture. Sodium 138, potassium 4.7, chloride 106, CO2 of 27, BUN 23, creatinine 0.82, glucose 89. White blood cell count 4.5, hemoglobin 13.8, hematocrit 41, platelet count 186. IMPRESSION: Ms. Parada is an 82-year-old female with past medical history significant for osteoporosis, hyperlipidemia, hypertension, hypothyroidism, moderate aortic stenosis, coronary artery disease, who presented to the hospital for an elective left total hip arthroplasty with Dr. Clover Lewis. The hospitalists have been asked to assist with co-medical management of this patient during her hospitalization. ASSESSMENT/PLAN: 1. Left hip pain. The patient had removal of hardware and left total hip arthroplasty today with Dr. Lewis. Management will be per Orthopedic Surgery. We will trend her H and H. She will have PT/OT eval. She will have a urinary catheter in place until tomorrow. She will have pain medication and bowel regimen. 2. Aortic stenosis. The patient has moderate aortic stenosis on echocardiogram. We will cautiously monitor her hemodynamic status. She should continue to follow with Cardiology as previously planned. 3. Hypertension. She is normotensive in the PACU. She can resume her amlodipine in the morning. I am going to hold her losartan and once her blood pressure allows, she can be resumed on her losartan. 4. Hyperlipidemia. She will be continued on a statin. 5. Glaucoma. She will be continued on her eye drops. 6. Malignant melanoma. She should continue surveillance. 7. Hypothyroidism. She will be continued on her home levothyroxine. 8. Fluids, electrolytes, and nutrition: She will be on clear liquid, advance diet as tolerated. 9. Code status: Full code. 10. DVT prophylaxis: She will have Lovenox bridged to warfarin per Orthopedic Surgery. 11. Disposition: Inpatient with disposition per Orthopedic Surgery. TIME SPENT: Time for this consultation was approximately 50 minutes, greater than half of that was spent with the patient discussing medications, past medical history, the events leading up to her arrival today, and performing a physical examination. The case has been reviewed with the attending, Dr. Martini, who agrees with the plan of care. Reviewed by KAREN FOX 08/05/18 1455 [id number]/[facility] #: [id number] NEAL
[2018-08-05] MEDS: Acetaminophen TAB* 325 MG PO SCH ×3 (04:09→19:17)
[2018-08-05] MEDS: ceFAZolin 1 GM in Dextrose (*) 1 GM/50 ML BAG IVPB SCH ×2 (04:09→12:39)
[2018-08-05 06:01] LABS: Hematocrit 25 % (35-47); Hemoglobin 8.4 g/dl (12.0-16.0); Mean Platelet Volume 7.7 um3 (7.4-10.4); Platelet Count 121 10^3/ul (150-450)
[2018-08-05] MEDS: Levothyroxine TAB* 25 MCG TAB PO SCH (06:02)
[2018-08-05 06:14] LABS: INR 1.29 (0.77-1.02)
[2018-08-05 06:17] LABS: EGFR Non-African American 52.1 (>60)
[2018-08-05] MEDS: PTO: Brimonid/Timolol 0.2/0.5%(NF) 10 ML OPHTH.SOLN LEFT EYE SCH ×2 (08:49→19:18)
[2018-08-05] MEDS: traMADol TAB* 50 MG PO PRN (08:53)
[2018-08-05] MEDS: Magnesium Hydroxide LIQ* 30 ML UDC PO SCH ×2 (08:55→19:31)
[2018-08-05] MEDS: Docusate CAP* 100 MG PO SCH ×2 (08:55→19:18)
--- NOTE | 2018-08-05 08:56 | PN ---
Progress Note - Progress Note Date of Service: 08/05/18 SOAP: Subjective: Pt. is alert, reports pain is controlled. Objective: Vital Signs: Temp Pulse Resp BP Pulse Ox 98.1 F 68 18 107/60 100 08/05/18 07:56 08/05/18 07:56 08/05/18 08:53 08/05/18 07:56 08/05/18 07:56 Laboratory Results - last 24 hr 08/05/18 08/05/18 08/05/18 05:45 05:45 05:45 Hgb 8.4 L Hct 25 L Plt Count 121 L MPV 7.7 INR (Anticoag Therapy) 1.29 H Sodium 139 Potassium 4.8 Chloride 108 Carbon Dioxide 27 Anion Gap 4 BUN 26 H Creatinine 1.02 H Est GFR ( Amer) 63.1 Est GFR (Non-Af Amer) 52.1 BUN/Creatinine Ratio 25.5 H Glucose 153 H Calcium 7.6 L LLE - dressing c/d/i. thigh soft. distally +df/pf, full sens lt, 2+ dp pulse. Assessment: 82 yo F pod 1 s/p revision yao'ed screws to LTHA Plan: wbat pt/ot hct 25 - will monitor post hip precautions lovenox and coumadin plan home with vns
[2018-08-05] MEDS ORDERED: Losartan TAB* 25 MG PO SCH (09:00)
[2018-08-05] MEDS ORDERED: amLODIPine TAB* 5 MG PO SCH (09:00)
[2018-08-05] MEDS ORDERED: traMADol TAB* 50 MG PO PRN (09:43)
[2018-08-05] MEDS: Enoxaparin(*) 40 MG/0.4 ML SYR SUBCUT SCH (12:40)
--- NOTE | 2018-08-05 12:53 | PN ---
Subjective Date of Service: 08/05/18 Interval History: Patient seen and examined at bedside. Denies fever, chills, lightheadedness or dizziness, shortness of breath, chest discomfort, N/V/D. Pt states that she has a decreased appetite and had some vomiting this AM. Pain is controlled. Family History: Unchanged from Admission Social History: Unchanged from Admission Past Medical History: Unchanged from Admission Objective Active Medications: Acetaminophen (Tylenol Tab*) 975 mg PO Q8H KAT Bisacodyl (Dulcolax Supp*) 10 mg ME DAILY PRN Reason: constipation Brimonidine/Timolol (Combigan 0.2/0.5% (Nf)) 1 drop LEFT EYE BID KAT Cyclobenzaprine HCl (Flexeril Tab*) 5 mg PO TID PRN Reason: SPASMS Diphenhydramine HCl (Benadryl Iv*) 12.5 mg IV Q6H PRN Reason: PRURITIS Docusate Sodium (Colace Cap*) 100 mg PO BID KAT Enoxaparin Sodium (Lovenox(*)) 40 mg SUBCUT Q24H KAT Lactated Ringer's (Lactated Ringers 1000 Ml Bag*) 1,000 mls @ 100 mls/hr IV PER RATE KAT Lactulose (Lactulose*) 30 ml PO Q6H PRN Reason: constipation Levothyroxine Sodium (Synthroid Tab*) 25 mcg PO 0600 KAT Magnesium Hydroxide (Milk Of Magnesia Liq*) 30 ml PO BID KAT Magnesium Hydroxide (Milk Of Magnesia Liq*) 30 ml PO Q6H PRN Reason: constipation Morphine Sulfate (Morphine Vial*) 2 mg IV Q2H PRN Reason: PAIN - SEVERE Ondansetron HCl (Zofran Inj*) 4 mg IV Q6H PRN Reason: nausea Ondansetron HCl (Zofran Tab*) 4 mg PO Q6H PRN Reason: NAUSEA Oxycodone HCl (Roxycodone Tab*) 10 mg PO Q4H PRN Reason: SEVERE PAIN Oxycodone/Acetaminophen (Percocet 5/325 Tab*) 1 tab PO Q4H PRN Reason: PAIN Oxycodone/Acetaminophen (Percocet 5/325 Tab*) 2 tab PO Q4H PRN Reason: PAIN Pharmacy Profile Note (Scopolamine Patch Remove*) 0 note PATCH OFF ONCE ONE Stop: 08/07/18 15:00 Polyethylene Glycol/Electrolytes (Miralax*) 17 gm PO DAILY PRN Reason: Constipation Pravastatin Sodium (Pravachol (Nf)) 10 mg PO QPM KAT Scopolamine (Transderm-Scop 1.5 Mg Patch*) 1 patch TRANSDERM Q72H PRN Reason: Nausea/Vomiting Tramadol HCl (Ultram*) 50 mg PO Q4H PRN Reason: PAIN Warfarin Sodium (Coumadin Tab(*)) 6 mg PO ONCE@1700 ONE; Protocol Stop: 08/05/18 17:01 Vital Signs - 8 hr 08/05/18 08/05/18 08/05/18 07:56 08:00 08:53 Temperature 98.1 F Pulse Rate 68 Respiratory 16 18 18 Rate Blood Pressure 107/60 (mmHg) O2 Sat by Pulse 100 Oximetry 08/05/18 08/05/18 11:46 11:55 Temperature 97.7 F Pulse Rate 67 Respiratory 16 Rate Blood Pressure 81/46 108/52 (mmHg) O2 Sat by Pulse 98 Oximetry Oxygen Devices in Use Now: None Appearance: NAD, sitting up in bed Ears/Nose/Mouth/Throat: Mucous Membranes Moist Respiratory: Symmetrical Chest Expansion and Respiratory Effort, Clear to Auscultation Cardiovascular: RRR, - - Grade 3/6 systolic murur heard best at the upper sternal border Abdominal: NL Sounds; No Tenderness; No Distention Extremities: No Edema Skin: No Rash or Ulcers Neurological: Alert and Oriented x 3, NL Muscle Strength and Tone Lines/Tubes/Other Access: Clean, Dry and Intact Peripheral IV - site benign Nutrition: Taking PO's Result Diagrams: 08/05/18 05:45 08/05/18 05:45 Assess/Plan/Problems-Billing Assessment: Ms. Parada is an 82 yo female with PMH significant for osteoporosis, HLD, HTN, hypothyroidism, moderate , and CAD who presented to the hospital for an elective left hip hardware removal and conversion to left total hip arthroplasty. - Patient Problems (1) Status post total hip replacement, left Code(s): Z96.642 - PRESENCE OF LEFT ARTIFICIAL HIP JOINT SNOMED Code(s): 515401530250 Comment: - POD #1, management per orthopedics - HH stable - Continue PT, pain management and bowel regimen (2) Hypotension Comment: - Asymptomatic - Suspect secondary to pain medications and BP medications - Received amlodipine this AM, will hold for now and resume when able - Will give a 500ml fluid bolus now (3) Aortic stenosis Code(s): I35.0 - NONRHEUMATIC AORTIC (VALVE) STENOSIS SNOMED Code(s): 77503957 Comment: - Caution monitoring of fluid status - Continue to follow-up with Cardiology (4) HTN (hypertension) Code(s): I10 - ESSENTIAL (PRIMARY) HYPERTENSION SNOMED Code(s): 43420915 Comment: - Hypotensive, SBP 80-110's - Hold amlodipine, resume when able - Continue to hold losartan (5) HLD (hyperlipidemia) Code(s): E78.5 - HYPERLIPIDEMIA, UNSPECIFIED SNOMED Code(s): 26092493 Comment: - Continue statin (6) Glaucoma Code(s): H40.9 - UNSPECIFIED GLAUCOMA SNOMED Code(s): 16701801 Comment: - Continue eye drops (7) Malignant melanoma Code(s): C43.9 - MALIGNANT MELANOMA OF SKIN, UNSPECIFIED SNOMED Code(s): 785583551 Comment: - Continue to follow with PCP (8) Hypothyroidism Code(s): E03.9 - HYPOTHYROIDISM, UNSPECIFIED SNOMED Code(s): 82123394 Comment: - Continue levothyroxine (9) DVT prophylaxis Code(s): KKQ0042 - SNOMED Code(s): 640502836 Comment: - Lovenox bridge to warfarin (10) Full code status Code(s): Z78.9 - OTHER SPECIFIED HEALTH STATUS SNOMED Code(s): 234710277 Status and Disposition: Inpatient. Disposition per orthopedic surgery.
[2018-08-05] MEDS ORDERED: Warfarin TAB(*) 6 MG PO ONE (17:00)
[2018-08-05] MEDS: CMC: Pravastatin (NF) 20 MG TAB PO SCH (17:10)
--- NOTE | 2018-08-05 19:48 | OP ---
OPERATIVE REPORT: DATE OF OPERATION: 08/04/18 DATE OF : 39 ATTENDING SURGEON: Clover Lewis MD HEDIS MANAGER: LETICIA Martinez Ms. did help throughout the procedure with preparation of the leg, wound retraction, and man ipulation of the hip and wound closure. ANESTHESIOLOGY: Dr. Dugan. ANESTHESIA: Spinal. PRE-OP DIAGNOSES: 1. Posttraumatic left hip arthritis. 2. Failure and collapse of left femoral head status post cannulated screw fixation. POST-OP DIAGNOSES: 1. Posttraumatic left hip arthritis. 2. Failure and collapse of left femoral head status post cannulated screw fixation. OPERATIVE PROCEDURE: 1. Revision of prior cannulated screws. 2. Left total hip arthroplasty with removal of hardware. COMPLICATIONS: None. ESTIMATED BLOOD LOSS: 200 cc. SPECIMEN: Femoral head, 3 cannulated screws, and acetabular reaming sent to Pathology. HARDWARE USED: This is uncemented ARI total hip arthroplasty hardware. For the cup, a 48D Tride nt Titanium 2 hemispherical cluster hole shell, a single 50-mm screw. For the polyethylene, Trident X3 polyethylene liner, 36D for the stem and Accolade II size 1 with a 127-degree neck. For the head, a 36+0 Biolox delta ceramic V40 femoral head. BRIEF HISTORY/INDICATIONS: Ms. Parada is an 82-year-old female who had prior cannulated screw fixat ion for a femoral neck fracture more than 2 years ago. She reports, since surgery, she has had pain and extreme shortening of that limb. She has recently started walking with a 2-inch heel lift on radha t side. Patient reports that due to continued pain and decreased quality of life, she would like to have conversion of the surgery to a left total hip arthroplasty. Radiographs were reviewed, which sh owed a short and collapsed femoral neck and posttraumatic arthritis of the hip joint. Informed conse nt was obtained from the patient. She understood the risks of surgery included but were not limited to bleeding, infection, damage to nearby structures, continued pain, need for further surgery, intrao perative fracture, nerve palsy, hardware failure or loosening, need for revision implant, stroke, hea rt attack, blood clot, and . She wished to proceed. INTRAOPERATIVE FINDINGS: Intraoperatively, severe posttraumatic arthritis with complete loss of cart ilage along the femoral head and acetabulum. She had a short and collapsed femoral neck. No signs o f infection. DESCRIPTION OF PROCEDURE: Ms. Parada was identified in the preanesthesia unit. Her left lower extre mity was marked as the correct operative side. Informed consent was signed and placed in the chart. Patient was taken to the operating room and placed under spinal anesthesia. A Da Silva catheter was pl aced. Placed in the right lateral decubitus position on the peg board. All bony prominences were we ll padded. Left lower extremity was prepped and draped in the usual sterile fashion. Preop time-out was made to correctly identify the patient's side and site. Appropriate perioperative antibiotics w ere given within 1 hour of incision. A standard posterior hip incision was made with a 10-blade and carried down to the lateral fascial la esperanza. The lateral fascial layer was incised in line with the skin incision. A Charnley retractor was placed. The piriformis and conjoint tendons were elevated off the posterolateral femur and tagged w ith #5 Ethibond. Next, a capsular flap was made with electrocautery and also tagged with #5 Ethibond . The hip was carefully dislocated. The femoral neck was collapsed and shortened. Femoral head had c omplete loss of cartilage. The hip was then reduced again. Electrocautery was used to dissect down t o the lateral portion of the 3 cannulated screws. The cannulated screw heads were carefully cleared of debris. A screwdriver was used to remove the 3 cannulated screws and were sent to Pathology. Cure tte was used to remove any fibrous tissue from the cannulated screw holes. The hip was once again ca refully dislocated. Lesser troch to the center of the femoral head was measured, was estimated at 52 mm. Oscillating saw was used to make the appropriate femoral neck cut. The femoral head was then r emoved and sent to Pathology. The femur was retracted anteriorly. After appropriate placement of retractor, the acetabulum was wel l visualized. The acetabulum was dysplastic and shallow. A long- handled knife was used to sharply remove any remaining labrum from the acetabular rim. The acetabulum was sequentially reamed up to a size 47. The 47 reamer has bleeding subchondral bone bed and was medialized as much as possible. Th e 47 trial head had good fit with appropriate anteversion and abduction angle. A 48D Trident Titaniu m 2 cluster hole hemispherical shell was chosen. This was impacted into the acetabulum without diffi culty. The cup was stable with appropriate anteversion and abduction angle. A single 50-mm screw wa s placed in the superior posterior quadrant for extra stability. A Trident X3 0-degree polyethylene liner 36D was chosen as the correct liner. This was impacted into the acetabulum without difficulty. Stability of the liner was checked and rechecked and noted to be stable. Next, attention was turned to preparation of the femoral canal. Femoral neck screw holes were visibl e with sporadic bone around these. A box-cut osteotome and rongeur were used to form an entrance hol e for the canal finder. The canal finder was carefully placed down the femoral canal. Next, the fem ur was sequentially broached up to a size 1. Size 1 broach had good fit and appropriate anteversion. There was some increased anteversion from the prior femoral neck fracture healing. A 127 neck trial and a 36+0 head trial was placed. The hip was reduced and taken through range of motion. The hip wa s stable in all positions. There was good soft tissue tension and appropriate leg lengths. Some ant erior capsular tightness was noted and expected. The hip was carefully dislocated. All trials were removed. Final implant chosen was an Accolade II size 1 with a 127-degree neck angle. This was impacted into the femoral canal without difficulty. T here was no periprosthetic fracture. Both the femoral neck region and trochanteric region were caref ully checked for any fractures and none were noted. This is a stable proximal femur after placement of the stem. Decision was made not to place the trochanteric claw plate. A 36+0 Biolox delta cerami c V40 femoral head was chosen and impacted. The lesser troch to center of the femoral head. Final m easurement was approximately 53 mm. The hip was then taken through a range of motion. The hip was s table in all positions. There was good soft tissue tension and appropriate leg lengths. The hip was copiously irrigated with sterile saline. Previously tagged capsule and tendons were reap proximated to the posterolateral femur through 2 trochanteric drill holes. Lateral fascial layer was closed using interrupted #1 Vicryl. The rest of the incision was closed in a layered fashion using 0 and 2-0 Vicryl. Skin was closed using running 3-0 Monocryl and Dermabond. Sterile Adaptic, 4x4s, and Webril and paper tape were used to cover the incision. The patient's anesthesia was reversed wit hout javy. She was taken to the PACU in stable condition. She is neurovascularly intact with g ood dorsiflexion and plantar flexion and EHL. Intended weightbearing will be weightbearing as tolerat ed with posterior hip precautions. Intended DVT prophylaxis will be Coumadin with a Lovenox bridge. [id number]/[facility] #: [id number]
[2018-08-06] MEDS: Acetaminophen TAB* 325 MG PO SCH ×3 (03:59→20:33)
[2018-08-06 05:48] LABS: Hematocrit 21 % (35-47); Hemoglobin 7.4 g/dl (12.0-16.0); Mean Platelet Volume 7.8 um3 (7.4-10.4); Platelet Count 113 10^3/ul (150-450)
[2018-08-06 05:54] LABS: INR 3.82 (0.77-1.02)
[2018-08-06] MEDS: Levothyroxine TAB* 25 MCG TAB PO SCH (05:55)
[2018-08-06] MEDS: Docusate CAP* 100 MG PO SCH ×2 (08:30→20:35)
[2018-08-06] MEDS: Magnesium Hydroxide LIQ* 30 ML UDC PO SCH ×3 (08:30→20:51)
[2018-08-06] MEDS: PTO: Brimonid/Timolol 0.2/0.5%(NF) 10 ML OPHTH.SOLN LEFT EYE SCH ×2 (08:30→20:36)
--- NOTE | 2018-08-06 08:53 | PN ---
Progress Note - Progress Note Date of Service: 08/06/18 SOAP: Subjective: [Pt. is alert, reports pain is controlled. Seen sitting up in bed, watched pt get up with PT. She states she feels well. No lightheadedness, no dizziness, no fatigue. Denies chest pain or SOB. Objective: General: A&Ox3, NAD LLE - dressing changed, incision is c/d/i. thigh soft. distally +df/pf, full sens lt, 2+ dp pulse. Vital Signs Temp 98.2 F 08/06/18 07:31 Pulse 89 08/06/18 07:31 Resp 16 08/06/18 08:00 BP 92/54 08/06/18 07:31 Pulse Ox 95 08/06/18 08:00 Intake & Output 08/05/18 08/06/18 08/06/18 18:59 06:59 18:59 Intake Total 2575 700 Output Total 100 1080 Balance 2475 -380 Intake: IV Fluids 1805 LR 1805 Oral 770 700 Output: Da Silva 100 1080 Assessment: 82 yo F pod 2 s/p revision yao'ed screws to LTHA Plan: wbat pt/ot hct 21 hgb 7.4 - will monitor post hip precautions INR of 3.82 - Hold warfarin tonight plan DC home with vns on 08/07/2018
[2018-08-06] MEDS: Enoxaparin(*) 40 MG/0.4 ML SYR SUBCUT SCH ×2 (13:25→13:35)
--- NOTE | 2018-08-06 15:22 | PN ---
Progress Note - Progress Note Date of Service: 08/06/18 SOAP: Pt was seen at 1515 after refusing blood transfusion. She states that she is feeling well and does not feel she needs a transfusion. Risks and benifits of a transfusion were explained to the pt and she understood. Pts blood pressure has increased from this morning . Vital Signs Temp 98.5 F 08/06/18 11:41 Pulse 82 08/06/18 11:41 Resp 18 08/06/18 11:41 BP 114/65 08/06/18 11:41 Pulse Ox 98 08/06/18 11:41 Will re-assess in the morning.
--- NOTE | 2018-08-06 16:59 | PN ---
Subjective Date of Service: 08/06/18 Interval History: Patient seen and examined at bedside. Denies fever, chills, dizziness or lightheadedness, shortness of breath, chest discomfort, N/V/D. Pt states that she is feeling much better this afternoon. She continued to be hypotensive overnight and this morning. She was ordered a blood transfusion by Orthopedics and declined. Her blood pressure has improved throughout the day. She states that her pain is controlled. Family History: Unchanged from Admission Social History: Unchanged from Admission Past Medical History: Unchanged from Admission Objective Active Medications: Acetaminophen (Tylenol Tab*) 975 mg PO Q8H KAT Bisacodyl (Dulcolax Supp*) 10 mg CO DAILY PRN Reason: constipation Brimonidine/Timolol (Combigan 0.2/0.5% (Nf)) 1 drop LEFT EYE BID KAT Cyclobenzaprine HCl (Flexeril Tab*) 5 mg PO TID PRN Reason: SPASMS Diphenhydramine HCl (Benadryl Iv*) 12.5 mg IV Q6H PRN Reason: PRURITIS Docusate Sodium (Colace Cap*) 100 mg PO BID KAT Lactated Ringer's (Lactated Ringers 1000 Ml Bag*) 1,000 mls @ 100 mls/hr IV PER RATE KAT Lactulose (Lactulose*) 30 ml PO Q6H PRN Reason: constipation Levothyroxine Sodium (Synthroid Tab*) 25 mcg PO 0600 KAT Magnesium Hydroxide (Milk Of Magnesia Liq*) 30 ml PO BID KAT Magnesium Hydroxide (Milk Of Magnesia Liq*) 30 ml PO Q6H PRN Reason: constipation Morphine Sulfate (Morphine Vial*) 2 mg IV Q2H PRN Reason: PAIN - SEVERE Ondansetron HCl (Zofran Inj*) 4 mg IV Q6H PRN Reason: nausea Ondansetron HCl (Zofran Tab*) 4 mg PO Q6H PRN Reason: NAUSEA Oxycodone HCl (Roxycodone Tab*) 10 mg PO Q4H PRN Reason: SEVERE PAIN Oxycodone/Acetaminophen (Percocet 5/325 Tab*) 1 tab PO Q4H PRN Reason: PAIN Oxycodone/Acetaminophen (Percocet 5/325 Tab*) 2 tab PO Q4H PRN Reason: PAIN Pharmacy Profile Note (Scopolamine Patch Remove*) 0 note PATCH OFF ONCE ONE Stop: 08/07/18 15:00 Polyethylene Glycol/Electrolytes (Miralax*) 17 gm PO DAILY PRN Reason: Constipation Pravastatin Sodium (Pravachol (Nf)) 10 mg PO QPM KAT Scopolamine (Transderm-Scop 1.5 Mg Patch*) 1 patch TRANSDERM Q72H PRN Reason: Nausea/Vomiting Tramadol HCl (Ultram*) 50 mg PO Q4H PRN Reason: PAIN Vital Signs - 8 hr 08/06/18 08/06/18 11:41 15:15 Temperature 98.5 F 98.3 F Pulse Rate 82 88 Respiratory 18 16 Rate Blood Pressure 114/65 102/56 (mmHg) O2 Sat by Pulse 98 97 Oximetry Oxygen Devices in Use Now: None Appearance: NAD, sitting up in bed Ears/Nose/Mouth/Throat: Mucous Membranes Moist Respiratory: Symmetrical Chest Expansion and Respiratory Effort, Clear to Auscultation Cardiovascular: RRR, - - Grade 3/6 systolic murmur heard best at the upper sternal borders Extremities: No Edema Skin: No Rash or Ulcers, - - Dressing to left hip clean, dry and intact Neurological: Alert and Oriented x 3, NL Muscle Strength and Tone Lines/Tubes/Other Access: Clean, Dry and Intact Peripheral IV - site benign Nutrition: Taking PO's Result Diagrams: 08/06/18 05:23 08/05/18 05:45 Assess/Plan/Problems-Billing Assessment: Ms. Parada is an 82 yo female with PMH significant for osteoporosis, HLD, HTN, hypothyroidism, moderate , and CAD who presented to the hospital for an elective left hip hardware removal and conversion to left total hip arthroplasty. - Patient Problems (1) Status post total hip replacement, left Code(s): Z96.642 - PRESENCE OF LEFT ARTIFICIAL HIP JOINT SNOMED Code(s): 313049081206 Comment: - POD #2, management per orthopedics - HH low, but Pt declined blood transfusion - Continue PT, pain management and bowel regimen (2) Acute blood loss anemia Code(s): D62 - ACUTE POSTHEMORRHAGIC ANEMIA SNOMED Code(s): 826266316 Comment: - Secondary to left total hip replacement - Pt declined blood transfusion - Continue to trend HH (3) Hypotension Comment: - Asymptomatic, improving - Suspect secondary to pain medications and anemia (4) Aortic stenosis Code(s): I35.0 - NONRHEUMATIC AORTIC (VALVE) STENOSIS SNOMED Code(s): 82079275 Comment: - Caution monitoring of fluid status - Continue to follow-up with Cardiology (5) HTN (hypertension) Code(s): I10 - ESSENTIAL (PRIMARY) HYPERTENSION SNOMED Code(s): 74991602 Comment: - Hypotensive, SBP 90-110's - Hold amlodipine and losartan, resume when able (6) HLD (hyperlipidemia) Code(s): E78.5 - HYPERLIPIDEMIA, UNSPECIFIED SNOMED Code(s): 32722820 Comment: - Continue statin (7) Glaucoma Code(s): H40.9 - UNSPECIFIED GLAUCOMA SNOMED Code(s): 14191677 Comment: - Continue eye drops (8) Malignant melanoma Code(s): C43.9 - MALIGNANT MELANOMA OF SKIN, UNSPECIFIED SNOMED Code(s): 918102184 Comment: - Continue to follow with PCP (9) Hypothyroidism Code(s): E03.9 - HYPOTHYROIDISM, UNSPECIFIED SNOMED Code(s): 10405014 Comment: - Continue levothyroxine (10) DVT prophylaxis Code(s): GNZ7964 - SNOMED Code(s): 531635537 Comment: - Lovenox bridge to warfarin (11) Full code status Code(s): Z78.9 - OTHER SPECIFIED HEALTH STATUS SNOMED Code(s): 133672103 Status and Disposition: Inpatient. Disposition per orthopedic surgery. Attending: Nickie Martini
[2018-08-06] MEDS ORDERED: oxyCODONE TAB* 5 MG TAB PO PRN ×2 (17:03→17:04)
[2018-08-06] MEDS: CMC: Pravastatin (NF) 20 MG TAB PO SCH (18:16)
[2018-08-07] MEDS: Acetaminophen TAB* 325 MG PO SCH ×3 (03:17→21:11)
[2018-08-07 05:35] LABS: Hematocrit 23 % (35-47); Hemoglobin 7.8 g/dl (12.0-16.0); Mean Platelet Volume 8.1 um3 (7.4-10.4); Platelet Count 115 10^3/ul (150-450)
[2018-08-07 05:41] LABS: INR 4.63 (0.77-1.02)
[2018-08-07] MEDS: Levothyroxine TAB* 25 MCG TAB PO SCH (06:04)
--- NOTE | 2018-08-07 07:39 | PN ---
Progress Note - Progress Note Date of Service: 08/07/18 SOAP: Subjective: [Pt was seen this am lying in bed. She states she is not feeling well. Complains of feeling general weakness and lightheadedness. She refused a unit of blood yesterday as she had a low H&H but felt well. She states that she would like the unit of blood now. ] Objective: [General: A&Ox3 MSK, LLE: Dressing is c/d/i. +df/pf, NVI distally. ] Vital Signs Temp 98.9 F 08/07/18 07:14 Pulse 84 08/07/18 07:14 Resp 18 08/07/18 07:14 BP 127/66 08/07/18 07:14 Pulse Ox 94 08/07/18 07:14 Intake & Output 08/06/18 08/07/18 08/07/18 18:59 06:59 18:59 Intake Total 980 1080 Output Total 500 600 Balance 480 480 Intake: Oral 980 1080 Output: Urine 600 Da Silva 500 Other: Estimated Stool Amount Medium Assessment: [POD 3 LTHA ] Plan: [hemoglobin is 7.8. She is less than 8 with symptoms, we feel transfusion would be prudent at this time. We will assess the pt after the transfusion. ]
[2018-08-07] MEDS: Magnesium Hydroxide LIQ* 30 ML UDC PO SCH ×2 (08:26→21:11)
[2018-08-07] MEDS: Docusate CAP* 100 MG PO SCH ×2 (08:28→21:11)
[2018-08-07] MEDS: PTO: Brimonid/Timolol 0.2/0.5%(NF) 10 ML OPHTH.SOLN LEFT EYE SCH ×2 (08:45→21:11)
--- NOTE | 2018-08-07 12:16 | PN ---
Subjective Date of Service: 08/07/18 Interval History: HOSPITALIST PROGRESS NOTE Patient seen and examined at bedside. Care reviewed and d/w Eva Currie RN. She doesn't feel well today. She c/o nausea, had one episode of vomiting earlier today. Cannot pinpoint any other symptoms. Family History: Unchanged from Admission Social History: Unchanged from Admission Past Medical History: Unchanged from Admission Objective Active Medications: Acetaminophen (Tylenol Tab*) 975 mg PO Q8H [facility] Last Admin: 08/07/18 03:17 Dose: 325 mg Bisacodyl (Dulcolax Supp*) 10 mg NE DAILY PRN PRN Reason: constipation Brimonidine/Timolol (Combigan 0.2/0.5% (Nf)) 1 drop LEFT EYE BID [facility] Last Admin: 08/07/18 08:45 Dose: 1 drop Cyclobenzaprine HCl (Flexeril Tab*) 5 mg PO TID PRN PRN Reason: SPASMS Diphenhydramine HCl (Benadryl Iv*) 12.5 mg IV Q6H PRN PRN Reason: PRURITIS Docusate Sodium (Colace Cap*) 100 mg PO BID [facility] Last Admin: 08/07/18 08:28 Dose: Not Given Lactated Ringer's (Lactated Ringers 1000 Ml Bag*) 1,000 mls @ 100 mls/hr IV PER RATE [facility] Lactulose (Lactulose*) 30 ml PO Q6H PRN PRN Reason: constipation Levothyroxine Sodium (Synthroid Tab*) 25 mcg PO 0600 [facility] Last Admin: 08/07/18 06:04 Dose: 25 mcg Magnesium Hydroxide (Milk Of Magnesia Liq*) 30 ml PO BID [facility] Last Admin: 08/07/18 08:26 Dose: Not Given Magnesium Hydroxide (Milk Of Magnesia Liq*) 30 ml PO Q6H PRN PRN Reason: constipation Ondansetron HCl (Zofran Inj*) 4 mg IV Q6H PRN PRN Reason: nausea Last Admin: 08/07/18 08:45 Dose: 4 mg Ondansetron HCl (Zofran Tab*) 4 mg PO Q6H PRN PRN Reason: NAUSEA Last Admin: 08/05/18 09:22 Dose: 4 mg Oxycodone HCl (Roxycodone Tab*) 5 mg PO Q4H PRN PRN Reason: PAIN - MODERATE TO SEVERE Oxycodone HCl (Roxycodone Tab*) 10 mg PO Q4H PRN PRN Reason: SEVERE PAIN Pharmacy Profile Note (Scopolamine Patch Remove*) 0 note PATCH OFF ONCE ONE Stop: 08/07/18 15:00 Polyethylene Glycol/Electrolytes (Miralax*) 17 gm PO DAILY PRN PRN Reason: Constipation Pravastatin Sodium (Pravachol (Nf)) 10 mg PO QPM [facility] Last Admin: 08/06/18 18:16 Dose: 10 mg Scopolamine (Transderm-Scop 1.5 Mg Patch*) 1 patch TRANSDERM Q72H PRN PRN Reason: Nausea/Vomiting Tramadol HCl (Ultram*) 50 mg PO Q4H PRN PRN Reason: PAIN Vital Signs - 8 hr 08/07/18 08/07/18 08/07/18 07:14 09:00 10:03 Temperature 98.9 F 98.0 F Pulse Rate 84 75 Respiratory 18 16 12 Rate Blood Pressure 127/66 115/66 (mmHg) O2 Sat by Pulse 94 97 Oximetry Oxygen Devices in Use Now: None Appearance: Elderly lady lying in bed in NAD. Eyes: No Scleral Icterus Ears/Nose/Mouth/Throat: Mucous Membranes Moist Neck: Trachea Midline Respiratory: Symmetrical Chest Expansion and Respiratory Effort, - - BS+ bilaterally with no added sounds Cardiovascular: RRR - Normal S1 and S2, +SM Extremities: No Edema, - - CDI left hip Neurological: Alert and Oriented x 3, NL Muscle Strength and Tone Result Diagrams: 08/07/18 05:07 08/05/18 05:45 Assess/Plan/Problems-Billing Assessment: Ms. Parada is an 82 yo female with PMH significant for osteoporosis, HLD, HTN, hypothyroidism, moderate , and CAD who presented to the hospital for an elective left hip hardware removal and conversion to left total hip arthroplasty. - Patient Problems (1) Status post total hip replacement, left Comment: - s/p revision of cannulated screws and left total hip arthroplasty 03/17. - Management as per Ortho. (2) Acute blood loss anemia Comment: - Secondary to left total hip replacement - Patient accepts blood transfusion today - goal Hb>8 (3) HTN (hypertension) Comment: - Normotensive now off of medications. - Amlodipine and losartan on hold for now. (4) HLD (hyperlipidemia) Comment: - Continue Pravastatin. (5) Hypothyroidism Comment: - Continue levothyroxine. (6) DVT prophylaxis Comment: - Warfarin. (7) Full code status Status and Disposition: Inpatient. Disposition per orthopedic surgery. Hospitalist service will continue to follow.
[2018-08-07 14:51] LABS: Hematocrit 30 % (35-47); Hemoglobin 10.1 g/dl (12.0-16.0)
[2018-08-07] MEDS ORDERED: Scopolamine PATCH Remove* 1 NOTE MISC PATCH OFF ONE (14:59)
[2018-08-07 15:08] LABS: EGFR Non-African American 80.5 (>60)
--- NOTE | 2018-08-07 19:06 | RAD ---
EXAM: US Abdomen Limited, Right Upper Quadrant CLINICAL HISTORY: 82 years old, female; Signs and symptoms; Nausea and vomiting; Additional info: Nausea, transaminitis TECHNIQUE: Real-time ultrasound of the right upper quadrant with image documentation. COMPARISON: AORTA US ABDOMINAL AORTA COMPLETE 04/23/2014 8:02 AM FINDINGS: Limitations: Limited evaluation due to patient inability to hold breath or change position. Liver: Unremarkable. No mass. No intrahepatic bile duct dilation. Gallbladder: Unremarkable. No gallstones. Negative sonographic Aldridge sign. Common bile duct: Unremarkable as visualized. No stones. No dilation. Pancreas: Unremarkable as visualized. Right kidney: Unremarkable. No stones. No solid mass. No hydronephrosis. IMPRESSION: No acute sonographic pathology. To contact [facility] with a general question: [facility] - [phone] For direct physician to physician contact: Physician Hotline - [phone] [facility] ([facility] Facility ID #[id number])
[2018-08-07] MEDS: CMC: Pravastatin (NF) 20 MG TAB PO SCH (21:10)
[2018-08-08] MEDS: Acetaminophen TAB* 325 MG PO SCH ×2 (03:33→12:38)
[2018-08-08 05:25] LABS: ABS Basophils 0 10^3/ul (0-0.2); ABS Eosinophils 0.1 10^3/ul (0-0.6); ABS Lymphocytes 0.9 10^3/ul (1.0-4.8); ABS Monocytes 0.5 10^3/ul (0-0.8); ABS Neutrophils 5.2 10^3/ul (1.5-7.7); ABS Nucleated RBC 0 10^3/ul; Eosinophil % 1.5 % (0-6); Hematocrit 27 % (35-47); Hemoglobin 9.6 g/dl (12.0-16.0); Lymphocyte % 13.8 % (25-47); Mean Corpuscular HGB Conc 35 g/dl (31-36); Mean Corpuscular Hemoglobin 32 pg (27-31); Mean Corpuscular Volume 93 fL (80-97); Mean Platelet Volume 8.1 um3 (7.4-10.4); Nucleated Red Blood Cells % 0; Platelet Count 124 10^3/ul (150-450); Red Blood Count 2.96 10^6/ul (4.00-5.40); Red Cell Distribution Width 14 % (10.5-15); White Blood Count 6.8 10^3/ul (3.5-10.8)
[2018-08-08 05:26] LABS: INR 3.02 (0.77-1.02)
[2018-08-08] MEDS: Levothyroxine TAB* 25 MCG TAB PO SCH (05:36)
--- NOTE | 2018-08-08 07:59 | PN ---
Progress Note - Progress Note Date of Service: 08/08/18 SOAP: Subjective: OOB to chair; pain well controlled Objective: Vital Signs Temp Pulse Resp BP Pulse Ox 98.6 F 78 16 121/63 98 08/08/18 02:59 08/08/18 02:59 08/08/18 02:59 08/08/18 02:59 08/08/18 02:59 Laboratory Last Values WBC 6.8 10^3/ul (3.5-10.8) 08/08/18 04:49 RBC 2.96 10^6/ul (4.00-5.40) L 08/08/18 04:49 Hgb 9.6 g/dl (12.0-16.0) L 08/08/18 04:49 Hct 27 % (35-47) L 08/08/18 04:49 MCV 93 fL (80-97) 08/08/18 04:49 MCH 32 pg (27-31) H 08/08/18 04:49 MCHC 35 g/dl (31-36) 08/08/18 04:49 RDW 14 % (10.5-15) 08/08/18 04:49 Plt Count 124 10^3/ul (150-450) L 08/08/18 04:49 MPV 8.1 um3 (7.4-10.4) 08/08/18 04:49 Neut % (Auto) 76.8 % (38-83) 08/08/18 04:49 Lymph % (Auto) 13.8 % (25-47) L 08/08/18 04:49 [place] % (Auto) 7.6 % (0-7) H 08/08/18 04:49 Eos % (Auto) 1.5 % (0-6) 08/08/18 04:49 Baso % (Auto) 0.3 % (0-2) 08/08/18 04:49 Absolute Neuts (auto) 5.2 10^3/ul (1.5-7.7) 08/08/18 04:49 Absolute Lymphs (auto) 0.9 10^3/ul (1.0-4.8) L 08/08/18 04:49 Absolute Monos (auto) 0.5 10^3/ul (0-0.8) 08/08/18 04:49 Absolute Eos (auto) 0.1 10^3/ul (0-0.6) 08/08/18 04:49 Absolute Basos (auto) 0 10^3/ul (0-0.2) 08/08/18 04:49 Absolute Nucleated RBC 0 10^3/ul 08/08/18 04:49 Nucleated RBC % 0 08/08/18 04:49 INR (Anticoag Therapy) 3.02 (0.77-1.02) H 08/08/18 04:49 Sodium 140 mmol/L (135-145) 08/08/18 04:49 Potassium 3.6 mmol/L (3.5-5.0) 08/08/18 04:49 Chloride 107 mmol/L (101-111) 08/08/18 04:49 Carbon Dioxide 22 mmol/L (22-32) 08/08/18 04:49 Anion Gap 11 mmol/L (2-11) 08/08/18 04:49 BUN 16 mg/dL (6-24) 08/08/18 04:49 Creatinine 0.58 mg/dL (0.51-0.95) 08/08/18 04:49 Est GFR ( Amer) 121.0 (>60) 08/08/18 04:49 Est GFR (Non-Af Amer) 100.0 (>60) 08/08/18 04:49 BUN/Creatinine Ratio 27.6 (8-20) H 08/08/18 04:49 Glucose 93 mg/dL (70-100) 08/08/18 04:49 Calcium 7.7 mg/dL (8.6-10.3) L 08/08/18 04:49 Total Bilirubin 0.90 mg/dL (0.2-1.0) 08/08/18 04:49 AST 65 U/L (13-39) H 08/08/18 04:49 ALT 55 U/L (7-52) H 08/08/18 04:49 Alkaline Phosphatase 70 U/L (34-104) 08/08/18 04:49 Total Protein 4.9 g/dL (6.4-8.9) L 08/08/18 04:49 Albumin 2.7 g/dL (3.2-5.2) L 08/08/18 04:49 Globulin 2.2 g/dL (2-4) 08/08/18 04:49 Albumin/Globulin Ratio 1.2 (1-3) 08/08/18 04:49 Lipase 28 U/L (11.0-82.0) 08/07/18 14:43 Blood Type O Positive 08/06/18 05:23 Antibody Screen Negative 08/06/18 05:23 Crossmatch See Detail 08/06/18 05:23 incision: c/d/i PE: NVI Assessment: s/p left JAJA Plan: 1) PT/OT- WBAT 2) INR 3.02; will hold coumadin/lovenox today 3) Awaiting SNF placement- D/C once bed available
[2018-08-08] MEDS: Magnesium Hydroxide LIQ* 30 ML UDC PO SCH (08:10)
[2018-08-08] MEDS: PTO: Brimonid/Timolol 0.2/0.5%(NF) 10 ML OPHTH.SOLN LEFT EYE SCH (08:14)
[2018-08-08] MEDS: Docusate CAP* 100 MG PO SCH (08:15)
--- NOTE | 2018-08-08 12:14 | DS ---
DISCHARGE SUMMARY: DATE OF ADMISSION: 08/04/18 DATE OF DISCHARGE: 08/08/18 SURGEON: Clover Lewis MD.* (DICTATED BY LETICIA NUNEZ) PRINCIPAL DIAGNOSIS: Severe left hip arthritis. DISCHARGE DIAGNOSIS: Severe left hip arthritis. HISTORY OF PRESENT ILLNESS: Ms. Parada is an 82-year-old female with complaints of left hip pain. She has failed conservative treatment and elected to proceed with a revision of prior cannulated screws to left total hip arthroplasty. HOSPITAL COURSE: Ms. Parada was admitted electively to the hospital on , and underwent a revision of prior cannulated screws to a left total hip arthroplasty. She tolerated the surgery well without complications. Postoperatively, she is placed on Lovenox and Coumadin for DVT prophylaxis. Her H and H on postop day 1 was 8 and 25. On post op day 2, 7 and 21. Postop day 3, 7 and 23. She was then given 2 units of packed red blood cells and on postop day 4, her H and H was 10 and 30 and on postop day 5, 9 and 27. Her vital signs remained stable. Her INR went from 1.29 on postop day 1 to 4.63 on postop day 3. Her Coumadin and Lovenox were held at the time of discharge on 08/08/18, her INR was 3.02. She is afebrile. Vital signs were stable. She was discharged in stable condition. DISCHARGE MEDICATIONS: 1. Colace 100 mg 2 to 3 caps daily as needed for constipation. 2. Flexeril 5 mg 3 times a day as needed for muscle spasms. 3. Percocet 5/325 one to two tabs every 4 to 6 hours as needed for pain. 4. Levothyroxine 25 micrograms daily. 5. Coumadin 2 mg tabs. 6. Pravastatin sodium 10 mg daily. 7. Tramadol 50 mg every 4 hours as needed for pain. PHYSICAL EXAMINATION UPON DISCHARGE: She is afebrile. Her vital signs are stable. Her wound was clean and dry. She was ambulating with the aid of a walker. She has 2+ dorsalis pedis pulse, intact sensation. Her lower extremity muscle group strengths were intact at 5/5. DISCHARGE DISPOSITION: Discharged to [facility] [place] in stable condition. DISCHARGE INSTRUCTIONS: She is discharged to [facility] [place] for continued rehab. We have recommended Coumadin for DVT prophylaxis for a total of 4 weeks. Her INR today was 3.02. So, we will hold the Coumadin. They should recheck her INR tomorrow and dose accordingly if her INR has come down. Recommend therapeutic range of 2. We recommended Percocet every 4 to 6 hours for pain as well as tramadol. She will be weightbearing as tolerated with posterior hip precautions. She can start taking a shower letting soap and water run over the incision and pat the area dry. She will follow with Dr. Lewis in two weeks. LETICIA NUNEZ [id number]/[facility] #: [id number] NEAL
[2018-08-08 13:18] VITALS: BP 130/77
--- NOTE | 2018-08-08 14:55 | PN ---
Hospitalist Progress Note Date of Service: 08/08/18 HOSPITALIST ADDENDUM Patient felt much improved this AM. Tolerated diet with no N/V. RUQ US was negative for GB disease. Stable for discharge to SNF today.
== END 2018-08-08 13:15 | DRG 470 ==
LOC: AA 11:21 → SSU 17:53
PROVIDERS: ADMIT Orthopaedic Surgery Adult Reconstructive Orthopaedic Surgery; ATTEND Internal Medicine
PROC: 0SPB04Z Removal of Internal Fixation Device from Left Hip Joint, Open Approach (ICD-10-PCS; 2018-08-04)
PROC: 0SRB04A Replacement of Left Hip Joint with Ceramic on Polyethylene Synthetic Substitute, Uncemented, Open Approach (ICD-10-PCS; 2018-08-04 12:45)
PROC: 30233N1 Transfusion of Nonautologous Red Blood Cells into Peripheral Vein, Percutaneous Approach (ICD-10-PCS; principal; 2018-08-07)
DX: M16.52 Unilateral post-traumatic osteoarthritis, left hip (principal); D62 Acute posthemorrhagic anemia; X58.XXXS Exposure to other specified factors, sequela; M81.0 Age-related osteoporosis without current pathological fracture; I10 Essential (primary) hypertension; E03.9 Hypothyroidism, unspecified; H40.9 Unspecified glaucoma; I25.10 Atherosclerotic heart disease of native coronary artery without angina pectoris; G89.29 Other chronic pain; M21.752 Unequal limb length (acquired), left femur; M85.88 Other specified disorders of bone density and structure, other site; I95.9 Hypotension, unspecified; C43.9 Malignant melanoma of skin, unspecified; I08.0 Rheumatic disorders of both mitral and aortic valves; E78.5 Hyperlipidemia, unspecified; Z98.49 Cataract extraction status, unspecified eye; S72.002S Fracture of unspecified part of neck of left femur, sequela; Z88.2 Allergy status to sulfonamides; Z82.49 Family history of ischemic heart disease and other diseases of the circulatory system; Z82.3 Family history of stroke; Z80.42 Family history of malignant neoplasm of prostate; Z79.01 Long term (current) use of anticoagulants; R63.6 Underweight; Z68.21 Body mass index [BMI] 21.0-21.9, adult; R11.2 Nausea with vomiting, unspecified
CPT/HCPCS: 36415; 76705; 80048; 80053; 83690; 85014; 85018; 85025; 85049; 85610; 86850; 86900; 86901; 86922; 88300; 88304; 88311; A9270-GY; C1713; C1776; G8978-GP-CI; G8978-GP-CJ; G8979-GP-CI; J0690; J1100; J1650; J2250; J2405; J2704; J2795; J3010; P9040